=== PATIENT | male | born 1955 | race Caucasian/White ===

== ENCOUNTER → 2020-10-11 11:58 | Outpatient (BNVA) | payer MEDICARE, SELFPAY | PROVIDERS: Visit Provider Surgery | DX: Z01.812 Encounter for preprocedural laboratory examination (principal) | CPT/HCPCS: 87635 ==

== ENCOUNTER 2020-10-15 06:15 | Day surgery (SDC) | payer MEDICARE, SELFPAY ==
[2020-10-12 13:18] VITALS: BMI 25.0
[2020-10-12 13:20] VITALS: BMI 25.5
[2020-10-15] VITALS (14 sets, daily range): BP systolic 152–191; BP diastolic 81–108; PULSE 48–95; RESP 16–19; TEMP 36.2–36.4; O2SAT 93–97
[2020-10-15] MEDS: sodium chloride 0.9% 1,000 ML 30 ML IV (06:52)
--- NOTE | 2020-10-15 07:04 | ANES.PREANE2 ---
Pre-Anesthetic Assessment Pre-Anesthetic Assessment: Height/Weight: Height 1.7 m Weight 73.936 kg Temp Pulse Resp BP Pulse Ox 97.2 F L 48 L 18 164/85 97 10/15/20 06:35 10/15/20 06:35 10/15/20 06:35 10/15/20 06:35 10/15/20 06:35 Preop Diagnosis: Inguinal Hernia Proposed Procedure: Operation Date: 10/15/20 08:00 Proposed Procedures p Laparoscopic Inguinal Hernia Repair w/ Mesh 45031 K40.90(Left) - Aleksey Case MD Was Beta Ines taken within 24 hours: N/A Last intake: Intake Last Liquid Date 10/14/20 Last Liquid Time 22:00 Last Solid Date 10/14/20 Last Solid Time 22:00 Social: Social History: Tobacco and No alcohol Exam: Pre-Anes Outpt Exam: alert, oriented x 3 and regular rate & rhythm Additional Exam Findings (including area of procedure): rhonchi Airway: Submandibular: WNL Cervical ROM: WNL MP: 2 Additional comments: OK dentition, missing #24 Pulmonary: Pulmonary: COPD Anesthetic Plan: ASA status: 3 Anesthesia: General Risk of > 500 ml blood loss (7ml/kg in children): No Meds/Allergies Current Medications: Current Medications Generic Name Dose Route Start Last Admin Trade Name Freq PRN Reason Stop Dose Admin Sodium Chloride 1,000 mls @ 30 ml s/hr 10/15/20 06:30 10/15/20 06:52 Sodium Chloride 0.9% IV 10/16/20 06:29 30 mls/hr .Q24H LISA Administration PFSH Anesthesia PFSH: Family History Denies family history of Anesthesia complication Bleeding disorder Social History Smoking and tobacco status: current every day smoker Quit status (tobacco): considering quitting Data Anesthesia Cardiac Studies: No Data to Display
[2020-10-15] MEDS: midazolam 1 mg/mL INJ 2 mL 2 MG IVP (07:09)
--- NOTE | 2020-10-15 07:30 | W.PM.OPSUD ---
Surgery/Procedure H&P Update DATE OF PROCEDURE: October 15, 2020 DATE H&P PERFORMED: 10/11/20 H&P UPDATE INFORMATION: I have reviewed H&P completed within last 30 days, I have examined patient prior to procedure and No changes to prior documentation PREOP DIAGNOSIS: Left Inguinal Hernia PRIMARY INDICATION FOR PROCEDURE: The same PLANNED PROCEDURE: Operation Date: 10/15/20 08:00 Proposed Procedures p Laparoscopic Inguinal Hernia Repair w/ Mesh [id number] K40.90(Left) - Aleksey Case MD
--- NOTE | 2020-10-15 09:51 | P.OP_ITS ---
Operative Report Date of procedure: October 15, 2020 Pre-op Diagnosis: Left Inguinal Hernia Post-op Diagnosis: Left direct and indirect inguinal hernias Procedure Done: Laparoscopic left inguinal hernia repair with mesh placement Implants: 3D large size polypropylene mesh Specimens removed/disposition: 1. Lipoma of the left cord 2. Hernial sac Surgeon: Aleksey Case Concrete Saw Operator: Surgical edward Dodson Circulating nurse Marianne Anesthesia: MAC and General (ONUR Stoll and Dr. Chance) Estimated blood loss (mL): 10 Condition: stable Disposition: same day Brief History: This is a pleasant 65 years old gentleman presenting with left inguinal hernia associated with symptoms of pain and discomfort. Full H&P per chart as well as informed consent Procedure: Patient was identified in the holding area ,patient was transferred to the operating room where he was placed in supine position, with both arms were tucked, antibiotic was given with induction, endotracheal tube was placed per anesthesia, Harris catheter was inserted by the circulating nurse and revealed clear urine, prep and drape of the abdomen was done under the usual sterile technique as well as the scrotal area. Time-out was done verifying the patient's name/date of /planned procedure destination after the procedure, all were in agreement. SCDs confirmed to be functioning, preoperative antibiotics administered per protocol, and beta ashley protocol was confirmed. A vertical skin incision of 1.2 cm was made with 11 blade knife through the supra umbilicus , incision was carried down to the subcutaneous tissue and deepened to identify the anterior fascia, two stay sutures were applied to the fascia, and safe entrance to the abdominal cavity was achieved, a Costa trocar technique safe entry to the abdominal cavity was achieved verified by using 10 mm zero degree laparoscopy, switched to a 30 degrees scope,low flow followed by a higher flow of CO2 gas up to 15 mmHg. There was no evidence of injury to intra-abdominal structures from the port entry, attention was deviated to both groins, there was a direct hernia defect with herniation of peritoneum and preperitoneal fat was noted on the left side, two 5 mm ports were placed on the right and left lateral aspect of the abdomen slightly above the level of the umbilicus, under direct visualization, anesthesia 2% lidocaine local was injected at all trocar sites prior to incisions. There was no evidence of herniation of the right groin region. The peritoneum above the level of the iliopubic tract was incised to the right of the midline and dissection was performed to create a preperitoneal space medial to lateral aspect up to anterior superior iliac spine on the left side.Dissection was continued onto the medial aspect and the left spermatic was identified, there was evidence of direct inguinal hernia .the sac was dissected. As it applied medial to the left inferior epigastric vessels/ dissection was performed to clear the space lateral to the spermatic cord and dorsomedial to it, the hernia sac was reduced and retracted far back, so there was an evidence of an indirect inguinal hernia that was dissected in addition to lipoma of the cord that was excised and sent for permanent pathology. Then a large left 3-D mesh was rolled and placed into the abdominal cavity through the Costa port, after the mesh was introduced it was positioned to lie in the myopectineal orifice and the mesh was unrolled and this covered the entire myopectineal orifice. Intra-abdominal pressure was dropped to 12 mmHg to help placement of the mesh good position On the lateral aspect of the mesh extended up to the anterior superior iliac spine on the medial aspect the mesh crossed the midline onto the right side, then using absorbable tacks, placed above the iliopubic tract onto the rectus abdominis muscle on the medial aspect and also to the lateral abdominal wall superomedial to the sacroiliac spine, then the mesh was also anchored to the pubis and the Grant's ligament inferiorly.The peritoneal leaflets were then brought together to cover the mesh and isolated from the other viscera, extra tacks were used to secure the peritoneum in good position.Specimens were retrieved and passed to the circulating nurse for permanent pathology. Final look demonstrated good hemostasis and the mesh in good position, there was no bleeding or injuries. A total of 20 mL Exparel 40 ml Normal saline 20 ml bupivacaine 0.25% were injected at the remaining of the tacks site and trocar sites as well Final look demonstrated good hemostasis.Then the fascia on the supra umbilical fascial defect was closed using #1 PDS sutures under direct visualization using fascial closure device Terrence Dahl.All ports were removed,then the abdomen was desufflated. All skin incisions were closed with 3-0 Vicryl and 4-0 Monocryl subcuticular suture and surgical glue was applied. The patient tolerated the procedure well, Harris catheter was taken out ,got extubated and was transferred to the recovery area in stable condition All counts of instruments,needles and sponges were completed I was present for the whole entire procedure
[2020-10-15] MEDS: fentaNYL 50 mcg/mL INJ 2mL IVP (10:23)
[2020-10-15] MEDS: meperidine 50 mg/mL INJ 12.5 MG IVP (10:41)
--- NOTE | 2020-10-15 10:47 | SUR.PHASEI ---
PT TO PACU AWAKE ALERT C/O OF PAIN , PT REPOSITIONED , DERMABOND X 2 SITES AND FLUFFS AND ATHLETIC SUPPORT D/I 1023 SEE PAIN MED GIVEN, 1030 PT SHAKING , WARM BLANKETS X 3 TO PT PT STILL SHAKING AND RATES LOWER ABD PAIN AT 10 SEE PAIN MED GIVEN 1045 PT SLEEPS QUIETLY VSS.
--- NOTE | 2020-10-15 10:53 | SUR.PHASEI ---
PT SLEEPS QUIETLY, VSS. PT STATES PAIN IS BETTER, NO SHIVERING NOTED.
[2020-10-15] MEDS: HYDROcodone-acetaminophen 5-325 mg Tablet 1 TAB PO (11:19)
--- NOTE | 2020-10-15 11:56 | ANE.PACU2 ---
Inpatient post-anesthesia follow up: Airway intact: Yes Vital signs: Temperature 97.2 F Pulse Rate 77 Respiratory Rate 18 Blood Pressure 164/81 Pulse Oximetry 94 Oxygen Delivery Me thod Room Air Oxygen Flow Rate Fraction of Inspir ed Oxygen Hydration adequate: Yes Nausea and vomiting: No Pain level: 2 Mental status: Baseline
== END 2020-10-15 12:00 | disposition home or self-care (01) ==
PROVIDERS: Visit Provider Surgery
PROC: (CPT 49650; principal; 2020-10-15 07:50)
DX: K40.90 Unilateral inguinal hernia, without obstruction or gangrene, not specified as recurrent (principal); J44.9 Chronic obstructive pulmonary disease, unspecified; F17.210 Nicotine dependence, cigarettes, uncomplicated
CPT/HCPCS: 49650; 51702; 88302; 88304; 96374; C1781; C9290; J0690; J1100; J1170; J2175; J2250; J2405; J2704; J2710; J3010; J3490; J7030

== ENCOUNTER 2020-11-19 13:02 | Outpatient (CLI) | payer MEDICARE, SELFPAY ==
--- NOTE | 2020-11-19 13:06 | XRR_ITS ---
PROCEDURE INFORMATION: Exam: XR Cervical Spine Exam date and time: 11/19/2020 1:07 PM Age: 65 years old Clinical indication: Pain; Cervicalgia TECHNIQUE: Imaging protocol: XR of the cervical spine. Views: 2 or 3 views. COMPARISON: No relevant prior studies available. FINDINGS: Bones/joints: Multilevel degenerative change and diminished cervical lordosis. Anatomic alignment. No instability. Soft tissues: Unremarkable. XR/XR cervical spine fl/ex [id number] IMPRESSION: Multilevel degenerative change and diminished cervical lordosis.
== END 2020-11-19 13:03 | disposition home or self-care (01) ==
LOC: RAD 13:04
PROVIDERS: Visit Provider Nurse Practitioner
DX: M54.2 Cervicalgia (principal)
CPT/HCPCS: 72040

== ENCOUNTER → 2020-11-21 15:03 | Outpatient (BNVA) | payer MEDICARE, SELFPAY | PROVIDERS: Referring Provider Nurse Practitioner Family; Visit Provider Specialist | DX: M19.022 Primary osteoarthritis, left elbow (principal) | CPT/HCPCS: 73080; 73110 ==

== ENCOUNTER 2020-12-03 09:14 | Outpatient (CLI) | payer MEDICARE, SELFPAY ==
--- NOTE | 2020-12-03 09:22 | MR_ITS ---
WS: [id number] MRI CERVICAL SPINE NONCONTRAST HISTORY: CERVICALGIA COMPARISON: None available. Technique: Multiplanar, multisequence noncontrast imaging of the cervical spine. Straightening and slight reversal normal cervical lordosis centered at C3-4. Reactive marrow edema wi thin the endplates of C3-C6. Very mild anterior wedging of C4 and C5. No acute fractures. Moderate to severe disc space narrowing and desiccation at C3-4, C4-5 and C5-6. Signal within the cervical cord is normal. Visualized posterior fossa is unremarkable. Craniocervical junction, C1 and C2 relationship, odontoid process and soft tissues are normal. C2-C3: Normal. C3-C4: Moderate annular disc bulging and marked osteophytic ridging around the vertebral bodies. Mild encroachment upon the ventral thecal sac with mild encroachment upon the ventral cord. Mild central stenosis. Severe RIGHT and moderate LEFT foraminal stenosis. C4-C5: Diffuse osteophytic ridging and annular disc bulging. Mild encroachment upon the ventral theca l sac without significant displacement. Moderate bilateral foraminal stenosis. C5-C6: Diffuse osteophytic ridging with annular disc bulging. There is a small central protrusion tacho otis osteophyte. Moderate central and moderate to severe bilateral foraminal stenosis. C6-C7: Mild annular disc bulging and osteophytic ridging. Mild encroachment upon the ventral thecal s ac with mild central stenosis. Osteophyte extends into the LEFT foramen with mild displacement of the exiting nerve roots. There is at least moderate bilateral foraminal stenosis, LEFT greater than RIGH T. C7-T1: Small foraminal osteophytes with only mild narrowing. Paraspinal soft tissue are normal. MR/MR cervical spin wo con* [id number] IMPRESSION: 1. Straightening with reversal normal cervical lordosis centered at the C3-4 l evel. 2. Moderate to severe spondylosis at C3-4, C4-5 and C5-6. Multifocal areas of central and foraminal stenosis due to combination of disc and osteophyte diseas e. 3. Severe RIGHT and moderate LEFT foraminal stenosis with mild central stenosi s at C3-4. 4. Moderate bilateral foraminal stenosis at C4-5. 5. Moderate central with moderate to severe bilateral foraminal stenosis at C5 -6. 6. Moderate bilateral foraminal stenosis, LEFT greater than RIGHT at C6-7 with mild central stenosis.
== END 2020-12-03 09:15 | disposition home or self-care (01) ==
LOC: RADSHAW 09:20
PROVIDERS: Visit Provider Nurse Practitioner
DX: G56.23 Lesion of ulnar nerve, bilateral upper limbs (principal); F17.210 Nicotine dependence, cigarettes, uncomplicated; M54.2 Cervicalgia
CPT/HCPCS: 72141; 95886; 95911

== ENCOUNTER → 2022-01-22 14:34 | Outpatient (BNVA) | payer MEDICARE, SELFPAY | PROVIDERS: Visit Provider Specialist | DX: G56.23 Lesion of ulnar nerve, bilateral upper limbs (principal); M25.522 Pain in left elbow | CPT/HCPCS: 99213; 99214 ==

== ENCOUNTER 2023-12-09 06:00 | Outpatient (RCR) | payer MEDICARE, SELFPAY | END 2023-12-22 23:59 | disposition home or self-care (01) | LOC: GPT 06:00 | PROVIDERS: Visit Provider Nurse Practitioner | DX: G46.4 Cerebellar stroke syndrome (principal); R53.1 Weakness; R26.81 Unsteadiness on feet | CPT/HCPCS: 97163 ==